=== PATIENT | male | born 1930 | race Caucasian/White ===

== ENCOUNTER → 2019-01-04 | Outpatient (CLI) | payer OTHER ==
[~2019-01-04] MED LIST: IOPAMIDOL (ISOVUE-M 200) 20 ML VIAL ONE; LIDOCAINE 1% 300 MG/30 ML SDV ONE
[2019-01-04 09:46] LABS: INR 1.08 (0.83-1.16); PROTIME(PATIENT) 13.6 SEC (12.0-15.0)
== END ==
LOC: FIMAGING 08:55
PROVIDERS: ATTEND Neurological Surgery
DX: M48.07 Spinal stenosis, lumbosacral region (principal); M54.5 Low back pain; Z95.0 Presence of cardiac pacemaker
CPT/HCPCS: 72132; 72265; Q9966

== ENCOUNTER 2019-01-09 15:45 | Inpatient (IN) | payer OTHER ==
--- NOTE | 2019-01-09 16:29 | EDPHY ---
H & P Stated Complaint: Increasing low back pain, numbness to left leg and urinary incontinence. 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 He has a L3- 4 decompression surgery planned with Dr. Morrison at [facility] on Monday. He states that over the last 3 days his weakness is grown worsened he can no longer ambulate. He has become more incontinent and is wishing to have the surgery done earlier. He also complains of numbness and his perineum. He called their office and they recommended he come to the ER. He has not had a fever. No new trauma. No right leg symptoms. No arm or neck symptoms. He got cleared by the cardiology team yesterday. He is not currently on steroids. Severity: Severe Modifying factors: Gradually worsening REVIEW OF SYSTEMS: Constitutional: denies: chills, fever, recent illness, recent injury EENTM: denies: blurred vision, double vision, nose congestion Respiratory: denies: cough, shortness of breath Cardiac: denies: chest pain, irregular heart rate, lightheadedness, palpitations Gastrointestinal/Abdominal: denies: abdominal pain, diarrhea, nausea, vomiting, blood streaked stools Genitourinary: denies: dysuria, frequency, hematuria, pain Musculoskeletal: See HPI Skin: denies: lesions, rash, jaundice, bruising Neurological: See HPI Hematologic/Lymphatic: denies: blood clots, easy bleeding, easy bruising Immunologic/allergic: denies: HIV/AIDS, transplant 10 systems reviewed and negative except as noted EXAM: GENERAL: Well-appearing, well-nourished and in no acute distress. HEAD: Atraumatic, normocephalic. EYES: Pupils equal round and reactive to light, extraocular movements intact, sclera anicteric, conjunctiva are normal. ENT: TMs normal, nares patent, oropharynx clear without exudates. Moist mucous membranes. NECK: Normal range of motion, supple without lymphadenopathy or JVD. LUNGS: Breath sounds clear to auscultation bilaterally and equal. No wheezes rales or rhonchi. HEART: Regular rate and rhythm without murmurs, rubs or gallops. ABDOMEN: Soft, nontender, normoactive bowel sounds. No guarding, no rebound. No masses appreciated. BACK: No CVA tenderness, no spinal tenderness, step-offs or deformities EXTREMITIES: Left leg pain and numbness. Strong plantar flexion but weak dorsiflexion. Pain with weight-bearing NEUROLOGICAL: Cranial nerves II through XII grossly intact. Normal speech, unable to weightbear left leg. See above PSYCH: Normal mood, normal affect. SKIN: Warm, dry, normal turgor, no visible rashes or lesions. Source: Patient Exam Limitations: No limitations - Personal History Current Tetanus Diphtheria and Acellular Pertussis (TDAP): Unsure - Medical/Surgical History Hx Asthma: No Hx Chronic Respiratory Disease: Yes Hx Diabetes: No Hx Cardiac Disease: Yes Hx Renal Disease: No Hx Cirrhosis: No Hx Alcoholism: No Hx HIV/AIDS: No Hx Splenectomy or Spleen Trauma: No Other PMH: Sleep apnea. Pacer. - Family History Significant Family History: No pertinent family hx - Social History Smoking Status: Former smoker Alcohol Use: None Constitutional: Initial Vital Signs Temperature (C) 36.9 C 01/09/19 15:55 Heart Rate 78 01/09/19 15:55 Respiratory Rate 18 01/09/19 15:55 Blood Pressure 135/77 H 01/09/19 15:55 O2 Sat (%) 91 L 01/09/19 15:55 O2 Delivery Mode Room Air Allergies/Adverse Reactions: No Known Allergies Allergy (Unverified 11/30/15 13:29) Home Medications: Medication Instructions Recorded Aspirin [Aspirin 81mg (*)] 81 mg PO DAILY 11/30/15 Atorvastatin Calcium [Lipitor 10 10 mg PO DAILY 11/30/15 mg (*)] Cholecalciferol Vit D3 [Vitamin D3 2,000 units PO BID 11/30/15 2000 units] Melatonin [Melatonin 3 MG (*)] 3 mg PO HS PRN 11/30/15 Omeprazole [Prilosec] 40 mg PO DAILY 11/30/15 diphenhydrAMINE [Benadryl 25 MG 50 mg PO HS PRN 11/30/15 (*)] Glucosamine Sulfate [Glucosamine 3,000 mg PO DAILY 01/03/19 Sulfate 500 MG (*)] Diclofenac Sodium [Voltaren 75 MG 75 mg PO BID PRN 01/09/19 (*)] Magnesium Oxide [Magnesium Oxide 400 mg PO HS 01/09/19 400 mg (*)] Medical Decision Making ED Course/Re-evaluation: I discussed the patient with Dr. Elizalde who will speak with Dr. Morrison and call back. 4:[address] Elizalde called back and they recommended admission to the hospital and start steroids and will plan surgery tomorrow. They also wondered if the patient had been cleared by the cardiology team. This did happen yesterday. Will admit to the medical service. 5:00 p.m. Discussed the case with Dr. Lucas who will admit. Differential Diagnosis: Partial list of the Differential diagnosis considered include but were not limited to; cauda equina, radiculopathy and although unlikely based on the history and physical exam, I also considered abscess, hematoma, fracture. - Data Points Medications Given: Discontinued Medications Dexamethasone (Decadron Injection) 10 mg IVP EDNOW ONE Stop: 01/09/19 16:54 Last Admin: 01/09/19 17:11 Dose: 10 mg Departure - Departure Disposition: Home, Routine, Self-Care Clinical Impression: Lumbar radiculopathy Condition: Fair
[2019-01-09] MEDS ORDERED: DEXAMETHASONE 4 MG TAB PO ONE (16:44)
[2019-01-09] MEDS ORDERED: DEXAMETHASONE 10 MG/ML VIAL ONE (16:52)
[2019-01-09] MEDS ORDERED: DEXAMETHASONE 10 MG/ML VIAL IVP ONE (16:53)
[2019-01-09] MEDS ORDERED: ONDANSETRON DISINTEGRATING 4 MG TAB PO PRN (17:28)
[2019-01-09] MEDS ORDERED: ONDANSETRON 4 MG/2 ML VIAL IVP PRN (17:28)
[2019-01-09 17:41] LABS: PLATELET COUNT 196 10^3/uL (150-400)
--- NOTE | 2019-01-09 19:13 | PDGENHP ---
<Nelida Martinez - Last Filed: 01/09/19 19:39> History and Physical - Chief Complaint Increasing lower back pain - History of Present Illness This is an 88-year-old male with history of increasing lower back pain who had a lumbar myelogram 3 days ago. It was found he had a spinal stenosis at L4-L5 and moderate to severe stenosis at L1 through 4, he was scheduled for a L3-L4 decompression surgery with Dr. Mendiola at [facility] on Monday. However the last few days his lower back pain has worsened to the point where he is no longer able to ambulate, he has urinary incontinence, and endorses saddle paraesthesia. He also reports an increase in stubbing his left toe due to weak dorsiflexion. He call the Neurosurgery office to explain to them his symptoms and requesting surgery surgery be performed at a sooner time which will be happening tomorrow. Neurosurgery office instructed him to come to the emergency room and be admitted for preparation of this surgery. He does have an extensive cardiac history and was evaluated by Dr. Lani Goel yesterday with clearance for surgery tomorrow. He denies chest pain, palpitations, nausea, shortness of breath, irregular bowel movements. Denies fevers or chills. He is being admitted for treatment and monitoring. History Information - Allergies/Home Medication List Allergies/Adverse Reactions: No Known Allergies Allergy (Unverified 11/30/15 13:29) Home Medications: Aspirin [Aspirin 81mg (*)] 81 mg PO DAILY 11/30/15 [Last Taken 01/09/19] Atorvastatin Calcium [Lipitor 10 mg (*)] 10 mg PO DAILY 11/30/15 [Last Taken 07/20] Cholecalciferol Vit D3 [Vitamin D3 2000 units] 2,000 units PO BID 11/30/15 [ Last Taken 01/09/19] Melatonin [Melatonin 3 MG (*)] 3 mg PO HS PRN 11/30/15 [Last Taken 11/29/15] Omeprazole [Prilosec] 40 mg PO DAILY 11/30/15 [Last Taken 01/09/19] diphenhydrAMINE [Benadryl 25 MG (*)] 50 mg PO HS PRN 11/30/15 [Last Taken ] Glucosamine Sulfate [Glucosamine Sulfate 500 MG (*)] 3,000 mg PO DAILY 01/03/19 [Last Taken Unknown] Diclofenac Sodium [Voltaren 75 MG (*)] 75 mg PO BID PRN 01/09/19 [Last Taken Unknown] Magnesium Oxide [Magnesium Oxide 400 mg (*)] 400 mg PO HS 01/09/19 [Last Taken Unknown] I have personally reviewed and updated: family history, medical history, social history, surgical history Past Medical History: Sleep apnea wearing 3-3.5 L of oxygen with his CPAP at nighttime, basal and squamous cell carcinoma, complete heart block, left bundle branch block, Hernandez's esophagus, pacemaker, hearing loss, osteoarthritis, high cholesterol - Surgical History Additional surgical history: Cataract surgery, cervical spinal fusion, hernia, right hip replacement, melanoma, prostatectomy - Family History Positive for: CAD - Social History Smoking Status: Former smoker Alcohol Use: Rarely Drug Use: None Additional social history: to [place]. Lives in [place]. Uses a cane to ambulate. Review of Systems Review of Systems: ROS: 10pt was reviewed & negative except for what was stated in HPI & below Physical Exam Physical Exam: Lab data and imaging were reviewed. White blood cells: 7.66 RBC: 4.49 hemoglobin: 14.6 Hematocrit: 42.3 Platelet: 196 Sodium: 136 Potassium: 4.1 Chloride: 105 Carbon dioxide: 23 BUN/Cr: 21/1.0 INR on 01/04/2019 :1.08 Temp Pulse Resp BP Pulse Ox 36.7 C 78 17 131/73 H 93 01/09/19 17:42 01/09/19 17:42 01/09/19 17:42 01/09/19 17:42 01/09/19 17:42 Constitutional: appears nourished, uncomfortable Eyes: PERRL, anicteric sclera, EOMI Ears, Nose, Mouth, Throat: moist mucous membranes, ears appear normal, no oral mucosal ulcers, hard of hearing Cardiovascular: regular rate and rhythym, no murmur, rub, or gallop, No edema Peripheral Pulses: 2+: dorsalis-pedis (R) (+DF/PF), dorsalis-pedis (L) (+PF, weak DF) Respiratory: no respiratory distress, no rales or rhonchi, clear to auscultation Gastrointestinal: normoactive bowel sounds, soft, non-tender abdomen, no palpable masses Genitourinary: other (see hpi) Skin: warm, normal color, no rashes or abrasions, no fluctuance, no induration, No mottled Musculoskeletal: pain with ROM (D/t lumbar back) Neurologic: AAOx3, sensation intact bilaterally, weakness, numbness, CN II-XII Intact Psychiatric: interacting appropriately, not anxious, not encephalopathic, thought process linear Lymph, Heme, Immunologic: no cervical LAD, no supraclavicular LAD Lab Data & Imaging Review 01/09/19 17:10 01/09/19 17:10 WBC 7.66 10^3/uL (3.80-9.50) 01/09/19 17:10 RBC 4.49 10^6/uL (4.40-6.38) 01/09/19 17:10 Hgb 14.6 g/dL (13.7-17.5) 01/09/19 17:10 Hct 42.3 % (40.0-51.0) 01/09/19 17:10 MCV 94.2 fL (81.5-99.8) 01/09/19 17:10 MCH 32.5 pg (27.9-34.1) 01/09/19 17:10 MCHC 34.5 g/dL (32.4-36.7) 01/09/19 17:10 RDW 14.0 % (11.5-15.2) 01/09/19 17:10 Plt Count 196 10^3/uL (150-400) 01/09/19 17:10 MPV 10.6 fL (8.7-11.7) 01/09/19 17:10 Neut % (Auto) 73.0 % (39.3-74.2) 01/09/19 17:10 Lymph % (Auto) 13.4 % (15.0-45.0) L 01/09/19 17:10 [place] % (Auto) 9.9 % (4.5-13.0) 01/09/19 17:10 Eos % (Auto) 2.5 % (0.6-7.6) 01/09/19 17:10 Baso % (Auto) 0.8 % (0.3-1.7) 01/09/19 17:10 Nucleat RBC Rel Count 0.0 % (0.0-0.2) 01/09/19 17:10 Absolute Neuts (auto) 5.59 10^3/uL (1.70-6.50) 01/09/19 17:10 Absolute Lymphs (auto) 1.03 10^3/uL (1.00-3.00) 01/09/19 17:10 Absolute Monos (auto) 0.76 10^3/uL (0.30-0.80) 01/09/19 17:10 Absolute Eos (auto) 0.19 10^3/uL (0.03-0.40) 01/09/19 17:10 Absolute Basos (auto) 0.06 10^3/uL (0.02-0.10) 01/09/19 17:10 Absolute Nucleated RBC 0.00 10^3/uL (0-0.01) 01/09/19 17:10 Immature Gran % 0.4 % (0.0-1.1) 01/09/19 17:10 Immature Gran # 0.03 10^3/uL (0.00-0.10) 01/09/19 17:10 Sodium 136 mEq/L (135-145) 01/09/19 17:10 Potassium 4.1 mEq/L (3.5-5.2) 01/09/19 17:10 Chloride 105 mEq/L (97-110) 01/09/19 17:10 Carbon Dioxide 23 mEq/l (22-31) 01/09/19 17:10 Anion Gap 8 mEq/L (6-14) 01/09/19 17:10 BUN 21 mg/dL (7-23) 01/09/19 17:10 Creatinine 1.0 mg/dL (0.7-1.3) 01/09/19 17:10 Estimated GFR > 60 01/09/19 17:10 Glucose 137 mg/dL (70-100) H 01/09/19 17:10 Calcium 9.2 mg/dL (8.5-10.4) 01/09/19 17:10 Total Bilirubin 0.8 mg/dL (0.1-1.4) 01/09/19 17:10 AST 53 IU/L (17-59) 01/09/19 17:10 ALT 55 IU/L (21-72) 01/09/19 17:10 Alkaline Phosphatase 93 IU/L (38-126) 01/09/19 17:10 Total Protein 6.0 g/dL (6.3-8.2) L 01/09/19 17:10 Albumin 3.8 g/dL (3.5-5.0) 01/09/19 17:10 Assessment & Plan Plan: This is an 88-year-old gentleman who is presenting with worsening lower back pain associated with left lower extremity numbness, weak dorsiflexion, and urinary incontinence. He also has saddle paresthesia. He was scheduled for decompression L3-L4 next Monday with Dr. Mendiola however due to his progressively worsening condition, he called the office and requested surgery sooner which will happen tomorrow. His vital signs are: Blood pressure 131/73, heart rate 78 , respiration 17, 93% on RA, temperature is 36.7 degrees C. #Pre-operative cardiac risk: He was seen by Dr. Lani Goel yesterday for preop cardiovascular examination and cardiac risks and clearance. He has complete heart block and is pacer dependent. He has a [employer] device. It is recommended he will need a magnet application through surgery. EKG performed yesterday showed likely A-sensed and V paced. He has no cardiovascular complaints. He has been cleared by cards for planned surgery without further cardiac testing. #Lumbar surgery -neurosurgery has been consulted and is well aware of the patient and planned surgery for tomorrow -NPO at midnight tonight -Pain Management p.o. P.r.n. -PT and OT to evaluate and treat -he received dexamethasone in the emergency room; no other steroids have been given. Holding his aspirin and meloxicam for tonight. # sleep apnea -he utilizes oxygen with the CPAP, usually set to 3-3.5 L of oxygen # complete heart block/pacer -as stated before, patient has no cardiovascular complaints at this time. He may continue use of atorvastatin. Holding aspirin tonight. -continuous tele monitoring tonight to ensure arrhythmias # GERD: He may continue omeprazole. Diet: Regular, NPO at midnight tonight VTE ppx: SCDs Code: Full Dispo: Admit to inpatient <Ruiz Giang - Last Filed: 01/09/19 19:46> History and Physical - History of Present Illness Review of Systems Review of Systems: Physical Exam Physical Exam: Temp Pulse Resp BP Pulse Ox 36.8 C 78 16 138/76 H 89 L 01/09/19 19:25 01/09/19 19:25 01/09/19 19:25 01/09/19 19:25 01/09/19 19:25 Lab Data & Imaging Review 01/09/19 17:10 01/09/19 17:10 WBC 7.66 10^3/uL (3.80-9.50) 01/09/19 17:10 RBC 4.49 10^6/uL (4.40-6.38) 01/09/19 17:10 Hgb 14.6 g/dL (13.7-17.5) 01/09/19 17:10 Hct 42.3 % (40.0-51.0) 01/09/19 17:10 MCV 94.2 fL (81.5-99.8) 01/09/19 17:10 MCH 32.5 pg (27.9-34.1) 01/09/19 17:10 MCHC 34.5 g/dL (32.4-36.7) 01/09/19 17:10 RDW 14.0 % (11.5-15.2) 01/09/19 17:10 Plt Count 196 10^3/uL (150-400) 01/09/19 17:10 MPV 10.6 fL (8.7-11.7) 01/09/19 17:10 Neut % (Auto) 73.0 % (39.3-74.2) 01/09/19 17:10 Lymph % (Auto) 13.4 % (15.0-45.0) L 01/09/19 17:10 [place] % (Auto) 9.9 % (4.5-13.0) 01/09/19 17:10 Eos % (Auto) 2.5 % (0.6-7.6) 01/09/19 17:10 Baso % (Auto) 0.8 % (0.3-1.7) 01/09/19 17:10 Nucleat RBC Rel Count 0.0 % (0.0-0.2) 01/09/19 17:10 Absolute Neuts (auto) 5.59 10^3/uL (1.70-6.50) 01/09/19 17:10 Absolute Lymphs (auto) 1.03 10^3/uL (1.00-3.00) 01/09/19 17:10 Absolute Monos (auto) 0.76 10^3/uL (0.30-0.80) 01/09/19 17:10 Absolute Eos (auto) 0.19 10^3/uL (0.03-0.40) 01/09/19 17:10 Absolute Basos (auto) 0.06 10^3/uL (0.02-0.10) 01/09/19 17:10 Absolute Nucleated RBC 0.00 10^3/uL (0-0.01) 01/09/19 17:10 Immature Gran % 0.4 % (0.0-1.1) 01/09/19 17:10 Immature Gran # 0.03 10^3/uL (0.00-0.10) 01/09/19 17:10 Sodium 136 mEq/L (135-145) 01/09/19 17:10 Potassium 4.1 mEq/L (3.5-5.2) 01/09/19 17:10 Chloride 105 mEq/L (97-110) 01/09/19 17:10 Carbon Dioxide 23 mEq/l (22-31) 01/09/19 17:10 Anion Gap 8 mEq/L (6-14) 01/09/19 17:10 BUN 21 mg/dL (7-23) 01/09/19 17:10 Creatinine 1.0 mg/dL (0.7-1.3) 01/09/19 17:10 Estimated GFR > 60 01/09/19 17:10 Glucose 137 mg/dL (70-100) H 01/09/19 17:10 Calcium 9.2 mg/dL (8.5-10.4) 01/09/19 17:10 Total Bilirubin 0.8 mg/dL (0.1-1.4) 01/09/19 17:10 AST 53 IU/L (17-59) 01/09/19 17:10 ALT 55 IU/L (21-72) 01/09/19 17:10 Alkaline Phosphatase 93 IU/L (38-126) 01/09/19 17:10 Total Protein 6.0 g/dL (6.3-8.2) L 01/09/19 17:10 Albumin 3.8 g/dL (3.5-5.0) 01/09/19 17:10 Assessment & Plan Assessment: Lumbar radiculopathy (Acute) Plan: Patient seen and evaluated independently and care plan reviewed with STEWART Martinez. Agree with her assessment and plan as outlined above , please see separate documentation for further details.
--- NOTE | 2019-01-09 19:55 | HOSPPROG ---
Hospitalist Progress Note Assessment/Plan: 88 yo M w/hx of complete heart block s/p PPM as well as lumbar stenosis with plan for surgery on Monday pw increasing radicular pain # lumbar stenosis and radiculopathy: with sxs worsening at home to the point where he is no longer able to walk and with perineal burning pain that is worsening, neurosurgery aware and recommending admission, pain mgmt and will change plan to do surgery sooner--likely in the am though this has yet to be confirmed. Will admit for pain control, pt/ot, NPO after midnight for now until surgical plan clarified. Lumbar spine CT personally reviewed with severe stenosis noted L4/L5. # 3rd degree heart block: s/p PPM, patient evaluated by cardiology prior to admission for surgical clearance, they do not recommend further testing or treatment prior to surgery # NA: on CPAP at home which has been ordered to continue here # HLD: continue statin # GERD: continue ppi # hx of melanoma, prostate cancer-not active issues # IP status, will require > 48 hours stay for surgical intervention and recovery Patient new to my care. Old records reviewed and summarized as above. Care plan reviewed with ER doctor and STEWART Martinez as above. Please see separate H&P by STEWART Martinez for further details Objective: Vital Signs Temp Pulse Resp BP Pulse Ox 36.8 C 78 16 138/76 H 89 L 01/09/19 19:25 01/09/19 19:25 01/09/19 19:25 01/09/19 19:25 01/09/19 19:25 Laboratory Results 01/09/19 17:10 01/09/19 17:10 ICD10 Worksheet Patient Problems: Problems Problem Status Onset Heart block AV second degree Acute Lumbar radiculopathy Acute
[2019-01-09] MEDS: CHOLECALCIFEROL VIT D3 1,000 UNITS TAB PO SCH (20:45)
[2019-01-09] MEDS: MELATONIN 3 MG TAB PO PRN (20:45)
[2019-01-10 05:46] LABS: PLATELET COUNT 183 10^3/uL (150-400)
--- NOTE | 2019-01-10 07:32 | GCON ---
[f rep st] CONSULTATION HOSPITAL COURSE/HISTORY/MAJOR MEDICAL FINDINGS: The patient is an 88-year-old gentleman with a histo ry of low back pain and left leg pain and weakness that has been increasing. He was scheduled to und ergo surgery, L3 to L5 laminectomy, with Dr. Morrison on Monday pending medical clearance. However, he developed worsening pain and numbness. He does have baseline urinary incontinence and saddle paresth esias. He denies any new right leg pain, numbness, tingling, or weakness. REVIEW OF SYSTEMS: Negative other than what is stated in the HPI. Please see pertinent negatives, p ertinent positives. PAST MEDICAL HISTORY: Significant for sleep apnea, using CPAP, basal and squamous cell carcinomas, c omplete heart block, left bundle branch block, Hernandez esophagus, having a pacemaker, hearing loss, o steoarthritis, and high cholesterol. PAST SURGICAL HISTORY: Significant for cataract surgery, cervical spinal fusion, hernia, right hip r eplacement, melanoma, and prostatectomy. FAMILY HISTORY: Significant for coronary artery disease. SOCIAL HISTORY: He is a former smoker. He does not use any alcohol or use illicit drugs. He is cur rently , lives in [place]. HOME MEDICATIONS: Include aspirin 81 mg 1 p.o. daily, last taken on January 09. Lipitor 10 mg, vitami n D3, melatonin, Prilosec, Benadryl, glucosamine sulfate, diclofenac, and magnesium oxide. ALLERGIES: No known drug allergies. PHYSICAL EXAM: VITALS: 123/68. Heart rate is 75. He is 96% on 3 L nasal cannula. Temp is 36.7. GENERAL: The patient is in no acute distress. He is alert and oriented x3. He answers all question s appropriately. His affect is appropriate to given situation. NEUROLOGIC: Cranial nerves 2-12 are grossly intact. EOMI and PERRLA. The patient in his right lower extremity is diffusely a 5- out of 5 in his iliopsoas, hamstrings, quadriceps, plantar flexion, dorsiflexion, EHL. The patient's left lower extremity, he is a 4- to 3+ in his dorsiflexion and his EHL. DIAGNOSTIC REVIEW: Patient underwent a CT myelogram which was reviewed by Dr. Morrison and his PA, John brunson, in the office, which demonstrated severe central canal stenosis at L4-5 and at L3-4. ASSESSMENT AND PLAN: The patient is an 88-year-old gentleman with a significant cardiac history and medical history including sleep apnea, pacemaker, and history of history of heart block, who has sam re central stenosis with known incontinence, saddle anesthesia, and worsening left leg weakness and n umbness. He was admitted to the hospital. At this point in time, Medicine is currently admitting michael m, working him up for clearance. Will defer to them about whether specific cardiac clearance is need ed for surgery. Given his worsening symptoms, it is reasonable to do surgery on this admission. We will go ahead and try to post him for surgery tomorrow if he can be cleared from a medical cardiac [facility]. He will be posted for an L3 to L5 laminectomy and decompression. Dr. Dusty Castle w ill be seeing the patient today and staffing this patient, but he will be going to the operating room with Dr. Vinny Morrison. /[id number]/MODL
--- NOTE | 2019-01-10 08:13 | HOSPPROG ---
Hospitalist Progress Note Assessment/Plan: 88 yo M w/hx of complete heart block s/p PPM as well as lumbar stenosis with plan for surgery on Monday pw increasing radicular pain. First encounter, chart reviewed. # lumbar stenosis and radiculopathy -says he has no pain unless he moves -plan is for a L3-L5 laminectomy w decompression -CT shows severe stenosis at L4/5 # 3rd degree heart block -s/p PPM -saw Dr Goel by cardiology prior to admission for surgical clearance, they do not recommend further testing or treatment prior to surgery # NA -on CPAP # HLD -statin # GERD -ppi # hx of melanoma, prostate cancer #plan: hopefully to OR today Subjective: Don is having no pain down left leg at rest, has some numbness along the outer edge of his upper leg and calf area. Objective: Vital Signs Temp Pulse Resp BP Pulse Ox 36.7 C 75 16 123/69 H 96 01/10/19 04:00 01/10/19 04:00 01/10/19 04:00 01/10/19 04:00 01/10/19 04:00 Laboratory Results 01/10/19 04:24 01/10/19 04:24 - Physical Exam Constitutional: no apparent distress Eyes: PERRL Ears, Nose, Mouth, Throat: hard of hearing Cardiovascular: regular rate and rhythym Respiratory: no respiratory distress, reduced air movement (bases) Gastrointestinal: normoactive bowel sounds Skin: warm Neurologic: AAOx3 Psychiatric: interacting appropriately ICD10 Worksheet Patient Problems: Problems Problem Status Onset Lumbar radiculopathy Acute Heart block AV second degree Acute
[2019-01-10] MEDS ORDERED: ATORVASTATIN CALCIUM 10 MG TAB PO SCH (09:00)
[2019-01-10] MEDS: PANTOPRAZOLE SODIUM 40 MG TAB PO SCH (09:38)
[2019-01-10] MEDS: CHOLECALCIFEROL VIT D3 1,000 UNITS TAB PO SCH ×2 (09:38→22:17)
[2019-01-10] MEDS: ACETAMINOPHEN 325 MG TAB PO PRN (09:40)
--- NOTE | 2019-01-10 15:12 | PDMN ---
Medical Necessity Medical necessity: Pt meets IP criteria per & ZULEIMA M-63; est los >2 mn for eval/tx of worsening back pain with LE numbness, weak dorsiflexion, inability to ambulate, urinary incontinence & saddle paraesthesia; admit for Neurosurgery consult w/lumbar surgery; comorbid advanced age, extensive cardiac hx; per H&P & order 01/09/19
[2019-01-10] MEDS: METHOCARBAMOL 750 MG TAB PO PRN (22:24)
[2019-01-11 04:52] LABS: PLATELET COUNT 181 10^3/uL (150-400)
[2019-01-11] MEDS ORDERED: ceFAZolin 2 GM/DEXTROSE 100 ML IV ONE (06:17)
[2019-01-11] MEDS ORDERED: ACETAMINOPHEN 500 MG TAB PO ONE (06:18)
[2019-01-11] MEDS ORDERED: GABAPENTIN 300 MG CAP PO ONE (06:19)
--- NOTE | 2019-01-11 06:20 | PDHPUP ---
History & Physical Update H&P update statement: This history and physical update is based on an assessment of the patient which was completed after admission or registration (within 24 hours), but prior to the surgery/procedure. H&P update: H&P reviewed & patient examined, no change in patient's condition since H&P completed
[2019-01-11] MEDS ORDERED: LR 1,000 ML IV ONE (06:30)
[2019-01-11] MEDS ORDERED: CHLORHEXIDINE GLUC HIBICLENS 118 ML BTL TP ONE (06:52)
[2019-01-11] MEDS ORDERED: THROMBIN (BOVINE) 5,000 UNIT VIAL TP ONE (06:52)
[2019-01-11] MEDS ORDERED: BUPIVACAINE/EPI 0.25% 30 ML SDV ONE (06:52)
[2019-01-11] MEDS ORDERED: BACITRACIN 50,000 UNITS/10 ML SYR IRR ONE (06:53)
--- NOTE | 2019-01-11 06:54 | PDANEPAE ---
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 Lavon notes not available pre-op. No other data available - Pulmonary History Hx Oxygen in Use at Home: Yes O2 in Use at Home (L/minute): 4 Hx Sleep Apnea: Yes Sleep Apnea Screening Result - Last Documented: Positive - Endocrine History Hx Diabetes: No - Chronic Pain History Chronic Pain: No ANE Review of Systems Review of Systems: - Pacemaker Date Pacemaker Last Checked: 01/08/19 ANE Patient History - Allergies Allergies/Adverse Reactions: No Known Allergies Allergy (Unverified 11/30/15 13:29) - Home Medications Home Medications: Aspirin [Aspirin 81mg (*)] 81 mg PO DAILY 11/30/15 [Last Taken 01/09/19] Atorvastatin Calcium [Lipitor 10 mg (*)] 10 mg PO DAILY 11/30/15 [Last Taken 07/20] Cholecalciferol Vit D3 [Vitamin D3 2000 units] 2,000 units PO BID 11/30/15 [ Last Taken 01/09/19] Melatonin [Melatonin 3 MG (*)] 3 mg PO HS PRN 11/30/15 [Last Taken 11/29/15] Omeprazole [Prilosec] 40 mg PO DAILY 11/30/15 [Last Taken 01/09/19] diphenhydrAMINE [Benadryl 25 MG (*)] 50 mg PO HS PRN 11/30/15 [Last Taken ] Glucosamine Sulfate [Glucosamine Sulfate 500 MG (*)] 3,000 mg PO DAILY 01/03/19 [Last Taken Unknown] Diclofenac Sodium [Voltaren 75 MG (*)] 75 mg PO BID PRN 01/09/19 [Last Taken Unknown] Magnesium Oxide [Magnesium Oxide 400 mg (*)] 400 mg PO HS 01/09/19 [Last Taken Unknown] - NPO status NPO Since - Liquids (Date): 01/11/19 NPO Since - Liquids (Time): 00:01 NPO Since - Solids (Date): 01/11/19 NPO Since - Solids (Time): 00:01 - Smoking Hx Smoking Status: Former smoker - Alcohol Use Alcohol Use: Rarely ANE Labs/Vital Signs - Labs Result Diagrams: 01/11/19 04:20 01/11/19 04:20 - Vital Signs Blood Pressure: 146/88 Heart Rate: 75 Respiratory Rate: 16 O2 Sat (%): 92 Height: 170.18 cm Weight: 86.183 kg ANE Physical Exam - Airway Neck exam: decreased ROM Mallampati Score: Class 3 Mouth exam: normal dental/mouth exam - Pulmonary Pulmonary: no respiratory distress, no rales or rhonchi - Cardiovascular Cardiovascular: regular rate and rhythym, no murmur, rub, or gallop - ASA Status ASA Status: III ANE Anesthesia Plan Anesthesia Plan: general endotracheal anesthesia (patient "had clearance." spoke with gayle. applied magnet to pacemaker with appropriate response. because cardiology recomends no further pre-op testing we will proceed today in a conservative manner assuming poor cardiac function) Total IV Anesthesia: Yes
--- NOTE | 2019-01-11 07:07 | PDCONSULT ---
Benefits Counselor Note: NEUROSURGERY I saw Don this morning and again spoke to him about the surgery. We had surgery scheduled for Monday, but his symptoms have worsened at home which is why he came for admission. His weakness has not worsened, but his numbness has continued to get worse. He has had some urinary incontinence as well, but he thinks that this has been because it has been difficult for him to get to the bathroom. We discussed the surgery at length and the risks of nerve injury, CSF leak, infection, and post-laminectomy syndrome. I answered all of his questions. He is ready to proceed. Prince
[2019-01-11] MEDS ORDERED: LIDOCAINE 2% 100 MG/5 ML SYR ONE (07:20)
[2019-01-11] MEDS ORDERED: PROPOFOL/EMULSION 500 MG/50 ML BOTTLE IV ONE ×2 (07:20→08:16)
[2019-01-11] MEDS ORDERED: fentaNYL 100 MCG/2 ML INJ ONE ×2 (07:20→10:16)
[2019-01-11] MEDS ORDERED: REMIFENTANIL HCL 1 MG VIAL ONE (07:20)
[2019-01-11] MEDS ORDERED: PROPOFOL 200 MG/20 ML VIAL ONE (07:20)
[2019-01-11] MEDS ORDERED: ROCURONIUM 50 MG/5 ML VIAL ONE (07:20)
[2019-01-11] MEDS ORDERED: SUGAMMADEX SODIUM 200 MG/2 ML VIAL IVP ONE (09:24)
[2019-01-11] MEDS ORDERED: ONDANSETRON 4 MG/2 ML VIAL ONE (09:24)
[2019-01-11] MEDS ORDERED: KETOROLAC 30 MG/1 ML SDV ONE (09:24)
[2019-01-11] MEDS ORDERED: DEXAMETHASONE 4 MG/ML VIAL ONE (09:24)
[2019-01-11] MEDS ORDERED: fentaNYL 100 MCG/2 ML INJ IVP PRN (09:56)
[2019-01-11] MEDS ORDERED: LR 500 ML IV PRN (09:56)
[2019-01-11] MEDS ORDERED: HYDROmorphONE/DILAUDID 1 MG/ML INJ IVP PRN (09:56)
[2019-01-11] MEDS ORDERED: NALOXONE HCL 0.4 MG/ML INJ IVP PRN (09:56)
[2019-01-11] MEDS ORDERED: oxyCODONE IR 5 MG TAB PO PRN (09:56)
[2019-01-11] MEDS ORDERED: MEPERIDINE 25 MG/0.5 ML AMP IVP PRN (09:56)
--- NOTE | 2019-01-11 09:58 | POSTANESTH ---
Post Anesthetic Evaluation Cardiovascular Status: Normal, Stable Respiratory Status: Normal, Stable Level of Consciousness/Mental Status: Can Participate in Eval, Mildly Sleepy, Arousable Pain Control: Adequate, Prn Tx Ordered Nausea/Vomiting Control: Adequate, Prn Tx Ordered Complications Possibly Related to Anesthesia: None Noted
--- NOTE | 2019-01-11 10:02 | POSTOPPROG ---
Post Op Note Date of Operation: 01/11/19 Surgeon: Vinny Morrison Color Mixer: none Anesthesiologist: Livan Anesthesia: GET(General Endotracheal) Pre-op Diagnosis: severe lumbar stenosis with neurogenic claudication Post-op Diagnosis: same Indication: same Procedure: L3-5 laminectomy Findings: severe lumbar stenosis Inf/Abcess present in the surg proc area at time of surgery?: No EBL: 50-100 Complications: none Bowel Protocol: No Clean Closure Performed: Yes Drains: Murray Delacruz
--- NOTE | 2019-01-11 10:04 | PDCONSULT ---
Account Support Manager Note: NEUROSURGERY resting in PACU AAOx3, speech clear strength is full, ? very mild left DF weakness sensation intact to light touch ROSARIO in place, dressings c/d/i POD#0 s/p L3-5 laminectomy - doing well - pain control - PT/OT - possible d/c tomorrow if doing well Prince
--- NOTE | 2019-01-11 10:20 | GOP ---
[f rep st] OPERATIVE REPORT DATE OF OPERATION: 01/11/2019 SURGEON: Vinny Morrison MD NEUROSURGEON: Vinny Morrison MD. AUTOMOBILE UPHOLSTERER APPRENTICE: None. ANESTHESIA: General endotracheal. PREOPERATIVE DIAGNOSIS: Severe lumbar stenosis with saddle anesthesia and some urinary retention. POSTOPERATIVE DIAGNOSIS: Severe lumbar stenosis with saddle anesthesia and some urinary retention. PROCEDURE PERFORMED: 1. Complete laminectomies at L3, L4, L5 with bilateral medial facetectomies and decompression of the cauda equina. 2. Use of the operative microscope. 3. Intraoperative fluoroscopy. 4. Intraoperative neurophysiologic monitoring, including somatosensory-evoked potentials and EMG. FINDINGS: Successful lumbar decompression. SPECIMENS: There were no specimens. ESTIMATED BLOOD LOSS: Blood loss was 75 mL. INDICATIONS: The patient is an 88-year-old man who presented with lumbar stenosis, which he was vinod ting conservatively. Over the past several weeks, his numbness in the perineal region has gotten wor se and he had a CT myelogram which revealed complete myelographic block at L4-5. We had him schedule d for surgery on Monday, but due to the worsening of his symptoms, he presented to the hospital and w e are proceeding with surgery early today. DESCRIPTION OF PROCEDURE: After informed consent was obtained from the patient, the patient was brou ght to the operating room and a formal time-out was performed, identifying the patient by name, medic al record number and date of . Preoperative antibiotics were given. The endotracheal tube was placed and general endotracheal anesthesia was smoothly induced. The patient was then turned to the prone position on the Desmond frame and all appropriate pressure points were padded and checked. All leads were placed for intraoperative neurophysiologic monitoring, including somatosensory-evoked pote ntials and EMG, and baseline potentials were obtained. A lateral radiograph then confirmed the level of the incision and a midline lumbar incision was marked. The lumbar region was prepped and draped in normal sterile fashion. 20 mL of 0.25% Marcaine with epinephrine was infiltrated in the skin for hemostasis and postoperative analgesia. The skin incision was then made using a 10 blade and the sub cutaneous tissues were dissected using monopolar electrocautery. The fascia was opened in the midlin e and the paraspinous muscles were taken down from the spinous process and lamina of L3, L4 and L5. The medial facet joints were identified and again a lateral radiograph was performed, confirming the levels of the exposure. This spinous processes were then removed using [place]ell rongeurs and the oper ative microscope was brought into the field. We began with drilling troughs laterally over the later al recess and then progressing medially. A midline decompression was performed removing the yellow l igament and carefully exposing the dura. We then able to course out laterally into the lateral reces s at the L5-S1 level and L3-4 level and moved in toward the area of the greater compression. At L4-5 , there was extreme facet degenerative disease and hypertrophy with markedly hypertrophied ligamentum flavum. This ligamentum flavum was disconnected laterally and then carefully dissected from the dur a, widely decompressing the dura at this level where it was maximally compressed. We then continued in the lateral recess, removing any ligamentum flavum from L3 down to L5-S1. Once the dura was widel y decompressed, the wound was copiously irrigated using bacitracin irrigation. Some powdered Gelfoam and Surgicel were placed in the lateral gutters for hemostasis. A final radiograph was performed co nfirming that we had decompressed from above L3-4 disk space down to the L5-S1 disk space. There was really no further bleeding and any oozing from the muscles was controlled using bipolar electrocaute ry. A 10-Canadian ROSARIO drain was placed in the subfascial space and the fascia was closed in the midline using interrupted 0 Vicryls, the deep dermis was closed using interrupted 2-0 Vicryls and the skin w as closed using Dermabond. Another 40 mL of 0.25% Marcaine with epinephrine was infiltrated into the skin and subcutaneous tissues for postoperative analgesia. The patient was then turned back into th e supine position where he was extubated and was transferred to the PACU in stable condition. There were no operative complications. I was scrubbed and present the entire procedure. All sponge and ne edle counts were correct at the end of the case. FLUIDS AND URINE OUTPUT: Per the Anesthesia record. DRAINS: A subfascial ROSARIO. /[id number]/MODL
[2019-01-11] MEDS: CHOLECALCIFEROL VIT D3 1,000 UNITS TAB PO SCH ×2 (10:49→22:05)
[2019-01-11] MEDS: PANTOPRAZOLE SODIUM 40 MG TAB PO SCH (10:49)
[2019-01-11] MEDS: KETOROLAC 15 MG/1 ML SDV IVP SCH ×2 (13:41→18:30)
--- NOTE | 2019-01-11 13:43 | HOSPPROG ---
Hospitalist Progress Note Assessment/Plan: 88 yo M w/hx of complete heart block s/p PPM as well as lumbar stenosis with plan for surgery on Monday pw increasing radicular pain. 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 PT and OT to see. Will see if he is stable enough to return home. Subjective: Don is feeling fine, sleepy. Objective: Vital Signs Temp Pulse Resp BP Pulse Ox 37.1 C 73 16 104/65 94 01/11/19 13:24 01/11/19 13:24 01/11/19 13:24 01/11/19 13:24 01/11/19 13:24 Laboratory Results 01/11/19 04:20 01/11/19 04:20 01/10/19 01/11/19 01/12/19 05:59 05:59 05:59 Intake Total 550 Output Total 85 Balance 465 - Physical Exam Constitutional: no apparent distress, appears nourished, not in pain Ears, Nose, Mouth, Throat: hard of hearing Cardiovascular: regular rate and rhythym Respiratory: no respiratory distress Gastrointestinal: normoactive bowel sounds Skin: warm Neurologic: AAOx3 Psychiatric: interacting appropriately ICD10 Worksheet Patient Problems: Problems Problem Status Onset Lumbar radiculopathy Acute Heart block AV second degree Acute
[2019-01-11] MEDS ORDERED: MAGNESIUM HYDROXIDE 30 ML UDCUP PO PRN (18:40)
[2019-01-11] MEDS ORDERED: LACTULOSE 20 GM/30 ML UDCUP PO PRN (18:40)
[2019-01-11] MEDS ORDERED: BISACODYL 10 MG SUPP PR PRN (18:40)
[2019-01-11] MEDS ORDERED: POLYETHYLENE GLYCOL 3350 17 GM PKT PO PRN (18:40)
[2019-01-11] MEDS: ATORVASTATIN CALCIUM 10 MG TAB PO SCH (22:05)
[2019-01-11] MEDS: SENNOSIDES/DOCUSATE SODIUM TAB PO SCH (22:05)
[2019-01-12] MEDS: KETOROLAC 15 MG/1 ML SDV IVP SCH ×4 (00:33→18:50)
[2019-01-12] MEDS: METHOCARBAMOL 750 MG TAB PO PRN ×2 (03:31→21:08)
[2019-01-12 04:42] LABS: PLATELET COUNT 170 10^3/uL (150-400)
--- NOTE | 2019-01-12 07:16 | NEUSURGPN ---
Date of Surgery: 01/11/19 Post Op Day: 1 Assessment/Plan: 88 yo male s/p L3-L5 laminectomy - leg symptoms improved this morning - continue ROSARIO drain (195 output in last 24 hours) - PT/OT - pain control - please contact neurosurgery with any changes in neuro status/exam Discussed with Dr. Morrison. Subjective: Feels leg pain is improved compared to prior to surgery. Objective: Awake. Alert. Facial expression symmetrical Speech fluent Strength 5/5 in RLE, LLE DF/EHL at 4+/5 - Physician Discussed Patient with Dr.: Morrison Neurosurgery Physical Exam - Vitals, I&O, Labs I and O 01/11/19 01/12/19 01/13/19 05:59 05:59 05:59 Intake Total 1450 Output Total 595 Balance 855 Weight 86.183 kg Intake: Oral (ml) 950 IV Intake (ml) 500 Output: Urine (ml) 350 Bedside Commode 250 Toilet 100 Estimated Blood Loss (ml) 50 ROSARIO Drain Output (ml) 195 Back Murray Delacruz 195 Other: Intake Quantity Yes Yes Sufficient Number of Voids Bedside Commode 1 Toilet 1 1 Vital Signs Temp Pulse Resp BP Pulse Ox 36.8 C 61 15 137/65 H 97 01/12/19 04:00 01/12/19 04:00 01/12/19 04:00 01/12/19 04:00 01/12/19 04:00 Laboratory Results 01/12/19 04:21 01/12/19 04:21 ICD10 Worksheet Patient Problems: Problems Problem Status Onset Lumbar radiculopathy Acute Heart block AV second degree Acute
--- NOTE | 2019-01-12 08:15 | HOSPPROG ---
Hospitalist Progress Note Assessment/Plan: 88 yo M w/hx of complete heart block s/p PPM as well as lumbar stenosis with plan for surgery on Monday pw increasing radicular pain. 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 He uses a walker at home. His daughter is here to help him and his at home. Subjective: Don is feeling well. His pain has completely lifted with surgery Objective: Vital Signs Temp Pulse Resp BP Pulse Ox 36.8 C 61 15 137/65 H 97 01/12/19 04:00 01/12/19 04:00 01/12/19 04:00 01/12/19 04:00 01/12/19 04:00 Laboratory Results 01/12/19 04:21 01/12/19 04:21 01/11/19 01/12/19 01/13/19 05:59 05:59 05:59 Intake Total 1450 Output Total 595 Balance 855 - Physical Exam Constitutional: appears nourished, not in pain Eyes: PERRL Respiratory: no respiratory distress Skin: warm Musculoskeletal: generalized weakness Neurologic: AAOx3 Psychiatric: interacting appropriately ICD10 Worksheet Patient Problems: Problems Problem Status Onset Lumbar radiculopathy Acute Heart block AV second degree Acute
[2019-01-12] MEDS: PANTOPRAZOLE SODIUM 40 MG TAB PO SCH (09:27)
[2019-01-12] MEDS: SENNOSIDES/DOCUSATE SODIUM TAB PO SCH ×2 (09:28→21:08)
[2019-01-12] MEDS: CHOLECALCIFEROL VIT D3 1,000 UNITS TAB PO SCH ×2 (09:28→21:08)
--- NOTE | 2019-01-12 11:50 | ASMTCMCOM ---
CM Note CM Note Notes: CM met with patient, and daughter. Daughter flew in from [place] to look after patients care. Doc reports that he will discharge tomorrow 01/13. Patient has a drain in his back and doc does not want to send him home to soon due to possibly infection. Doc recommends home care with RN, PT and OT. Patient was accepted with [facility]. CM to follow. Plan: [facility] Date Signed: 01/12/2019 11:49 AM Electronically Signed By:Carmen Jama
[2019-01-12] MEDS: MELATONIN 3 MG TAB PO PRN (21:08)
[2019-01-12] MEDS: ATORVASTATIN CALCIUM 10 MG TAB PO SCH (21:08)
[2019-01-13] MEDS: METHOCARBAMOL 750 MG TAB PO PRN ×2 (05:37→12:30)
--- NOTE | 2019-01-13 07:09 | NEUSURGPN ---
Date of Surgery: 01/11/19 Post Op Day: 2 Assessment/Plan: 88 yo male s/p L3-L5 laminectomy - leg symptoms improved - remove ROSARIO drain today - PT/OT - pain controlled on current regimen - ok for discharge from our standpoint - please contact neurosurgery with any changes in neuro status/exam Discussed with Dr. Morrison. Subjective: Doing well this morning. Leg symptoms improving. Objective: Awake. Alert. Facial expression symmetrical Speech fluent Strength 5/5 in RLE, LLE DF/EHL at 4+/5 - Physician Discussed Patient with Dr.: Morrison Neurosurgery Physical Exam - Vitals, I&O, Labs I and O 01/12/19 01/13/19 01/14/19 05:59 05:59 05:59 Intake Total 1450 460 Output Total 595 90 Balance 855 370 Weight 86.183 kg Intake: Oral (ml) 950 460 IV Intake (ml) 500 Output: Urine (ml) 350 Bedside Commode 250 Toilet 100 Estimated Blood Loss (ml) 50 ROSARIO Drain Output (ml) 195 90 Back Murray Delacruz 195 90 Other: Intake Quantity Yes Yes Sufficient Number of Voids Bedside Commode 1 Toilet 1 1 Number of Stools Toilet 1 Vital Signs Temp Pulse Resp BP Pulse Ox 36.8 C 74 16 134/79 H 92 01/12/19 22:28 01/12/19 22:28 01/12/19 22:28 01/12/19 22:28 01/12/19 22:28 Laboratory Results 01/12/19 04:21 01/12/19 04:21 ICD10 Worksheet Patient Problems: Problems Problem Status Onset Lumbar radiculopathy Acute Heart block AV second degree Acute
[2019-01-13 07:35] LABS: PLATELET COUNT 164 10^3/uL (150-400)
[2019-01-13 08:02] VITALS: BP 153/79
[2019-01-13] MEDS: ACETAMINOPHEN 325 MG TAB PO PRN ×2 (08:45→12:30)
[2019-01-13] MEDS: PANTOPRAZOLE SODIUM 40 MG TAB PO SCH (08:45)
[2019-01-13] MEDS: CHOLECALCIFEROL VIT D3 1,000 UNITS TAB PO SCH (08:46)
[2019-01-13] MEDS: SENNOSIDES/DOCUSATE SODIUM TAB PO SCH (08:53)
--- NOTE | 2019-01-13 10:19 | PDIAF ---
- Diagnosis Diagnosis: s/p L3-L5 laminectomy Code Status: Full Code - Medication Management Discharge Medications: electronically signed and located in the Home Medication List. PICC Care - Routine: N/A - Orders Services needed: Home Care, Physical Therapy, Occupational Therapy Home Care Face to Face: I certify that this patient was under my care and that I had the required [id number] encounter meeting the encounter requirements on the discharge day. My findings support the fact that the patient is homebound as defined in Home Care Face to Face Continued: CMS Chapter 7 Medicare Benefits Manual 30.1.1 , The condition of the patient is such that there exists a normal inability to leave home and consequently, leaving home would require a considerable and taxing effort. Diet Recommendation: no restrictions on diet Additional Instructions: 1. Follow up with Dr. Morrison in 2 weeks. [phone] 2. Refrain from lifting more than 10 pounds and bending/twisting. 3. Ok to shower and get the incision wet, be gentle, no scrubbing. 4. Call Dr. Morrison's office with any questions/concerns. - Follow Up Care Current Providers and Referrals: Waldo Murphy MD [Primary Care Provider] - As per Instructions
--- NOTE | 2019-01-13 10:49 | ASMTLACE ---
LACE Length of stay for Answers: 4-6 days current admission Acuity / Level of Answers: Yes Care: Did the patient have an inpatient admission? 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
--- NOTE | 2019-01-13 10:49 | ASMTCMCOM ---
CM Note CM Note Notes: Met with Pt and family to discuss discharge. Pt will go home w/ [facility] PT/OT. Updated referrals sent and [facility] staff notified via phone, of discharge. CM available for needs. PLAN: discharge home with [facility] Date Signed: 01/13/2019 10:48 AM Electronically Signed By:Lisa Duffy
--- NOTE | 2019-01-13 15:21 | GDS ---
[f rep st] DISCHARGE SUMMARY DISCHARGE DIAGNOSES: 1. Lumbar stenosis with radiculopathy. 2. Status post L3 to L5 laminectomy. 3. Third-degree heart block, status post pacemaker. 4. Obstructive sleep apnea on CPAP. 5. Hyperlipidemia. 6. Gastroesophageal reflux disease. 7. History of melanoma. 8. History of prostate cancer. CONSULTANTS: 1. Virgen Stovall, PAC, Neurosurgery. 2. Dr. Vinny Morrison, Neurosurgeon. PROCEDURE: Laminectomies at L3, L4, L5 with bilateral medial facetectomy and decompression of the ca uda equina January 11, 2019. HISTORY OF DETAILS: History of details please see history and physical dated January 09, 2019. In [facility], the patient is an 88-year-old male with a history of worsening low back pain and spinal stenosis who was admitted to the hospital due to acute worsening low back pain with radiculopathy. HOSPITAL COURSE: Patient was admitted to the Medical/Surgical unit. He was noted to have saddle par esthesias and given his worsening condition, Neurosurgery consult was obtained for consideration of m ore urgent surgical intervention. He was admitted to the hospital for further management. The ham nt was admitted to the Medical/Surgical unit. He was seen by Dr. Lani Goel from the Cardiology serv ice the day prior to admission. Given his history of complete heart block and pacer dependency, it w as recommended he have a magnet application through the surgery. His EKG showed a sensed and V paced rhythm. He has been asymptomatic from a cardiac standpoint. He was cleared for surgery by the Card iology service without further cardiac testing. Neurosurgery consulted and took the patient to the o perating room for the above procedure. He did receive dexamethasone perioperatively. His postop cou rse has been unremarkable. His drain was removed by the Neurosurgery service on the day of discharge . He is ambulating and pain is controlled. He was evaluated by therapy services team who thought he was safe for discharge home. He has apparently been followed by home health agency in the past and will resume these services upon discharge. DISPOSITION: The patient is discharged home with home health services including PT, OT. FOLLOWUP: 1. Dr. Vinny Morrison, Neurosurgery in [address] Byron Murphy, Primary Care. DISCHARGE MEDICATIONS: Please see [facility] for completed medication list. Medications on discharge include Tylenol 650 p.o. q.4 hours p.r.n., MiraLAX 17 g daily p.r.n., Senokot 1-2 tabs p.o. twice kwan ly p.r.n. He will continue all other outpatient medications as previously prescribed. Christopher is d iscontinued due to fall risk. /[id number]/MODL
--- NOTE | 2019-01-14 09:54 | ASDISCHSUM ---
Discharge Information Plan Status: Medically Cleared to Leave: Discharge Date:01/13/2019 01:20 PM CM D/C Disposition: ADT D/C Disposition:Home Health Service Projected Discharge Date:01/13/2019 11:00 AM Transportation at D/C: Discharge Delay Reason: Follow-Up Date:01/13/2019 11:00 AM Discharge Slot: Final Diagnosis: Placement Information Referral Type:*Home Health Care Services Referral ID:[id number] Provider Name:[facility] (formerly [facility]) Address 1:[address] [place] [address] Address 2: City:[place] Selection Factors: State:[place] Patient Contact Information Contact Name:FLORENTINO Relationship: Address:[address] [facility] Work Phone: [facility] Phone: State/Zip Code:[place] [address] Email: Financial Information Financial Class:Medicare Primary Plan Desc:MEDICARE INPATIENT Primary Plan Number:[id number] Secondary Plan Desc:ESTHER ANDREA O [employer] COL Secondary Plan Number:[id number] Assessment Information LACE LACE Length of stay for Answers: 4-6 days current admission Acuity / Level of Answers: Yes Care: Did the patient have an inpatient admission? 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 Daughter flew in from [place] to look after patients care. [facility] reports that he will discharge tomorrow 01/13. Patient has a drain in his back and doc does not want to send him home to soon due to possibly infection. [facility] recommends home care with RN, PT and OT. Patient was accepted with [facility]. CM to follow. Plan: [facility] Date Signed: 01/12/2019 11:49 AM Electronically Signed By:Carmen Jama [facility] Progress Note CM Note CM Note Notes: Met with Pt and family to discuss discharge. Pt will go home w/ [facility] PT/OT. Updated referrals sent and [facility] staff notified via phone, of discharge. CM available for needs. [facility] Date Signed: 01/13/2019 10:48 AM Electronically Signed By:Lisa Duffy Intervention Information Intervention Type:*Incorrect Registration Date of Service:01/09/2019 10:01 AM Patient Type:Observation Staff Member:ALICIA Aiken, Nayely Hours: Discipline: Severity: Comment:
== END 2019-01-13 13:20 | disposition home health service (06) | DRG 520 ==
LOC: OBSVTOIN 17:10 → F3N 17:32
PROVIDERS: ADMIT Internal Medicine; ATTEND Hospitalist
PROC: 00NY0ZZ Release Lumbar Spinal Cord, Open Approach (ICD-10-PCS; principal; 2019-01-11 07:15)
PROC: 4A1004G Monitoring of Central Nervous Electrical Activity, Intraoperative, Open Approach (ICD-10-PCS; principal; 2019-01-11 07:15)
DX: M48.061 Spinal stenosis, lumbar region without neurogenic claudication (principal); M54.16 Radiculopathy, lumbar region; R33.9 Retention of urine, unspecified; G47.33 Obstructive sleep apnea (adult) (pediatric); E78.5 Hyperlipidemia, unspecified; K21.9 Gastro-esophageal reflux disease without esophagitis; Z95.0 Presence of cardiac pacemaker; Z85.820 Personal history of malignant melanoma of skin; Z85.46 Personal history of malignant neoplasm of prostate
CPT/HCPCS: 97116-GP; 97161-GP; 97165-GO; 97530-GO; 97530-GP; 97535-GO; J0690; J1100; J1885; J2001; J2405; J2704; J3010

== ENCOUNTER 2019-02-09 20:26 | Emergency (ER) | payer OTHER ==
--- NOTE | 2019-02-09 20:48 | EDPHY ---
General - History Smoking Status: Former smoker Time Seen by Provider: 02/09/19 20:43 Narrative: CLINICAL IMPRESSION: Hematuria, urinary retention ASSESSMENT/PLAN: Patient is an 88-year-old male with a significant medical history of GERD and hyperlipidemia who presents to the emergency department with complaints of hematuria and acute urinary retention. Patient is afebrile, he is mildly uncomfortable appearing however not toxic-appearing. Patient's abdomen was soft , mild tenderness in the suprapubic region without rebound or guarding; no evidence of a surgical abdomen. Bladder scan revealed 700 cc of retained urine. History and physical examination today is consistent with acute urinary retention and gross hematuria. Patient was treated with a Wei catheter and a large amount of urine was returned, pink in color no clots appreciated. Urinalysis revealed RBCs, no leukocytes or nitrites. There is no evidence of infection, no fever, no vomiting. On repeat exam and after Wei placement the patient denies any physical complaints, he had complete resolution of his symptoms. He was noted to be mildly tachycardic on arrival, this resolved while in the emergency department. His abdomen was soft and nontender to palpation. Plan is to leave Wei catheter in place and followup with urology. Return precautions discussed. DIFFERENTIAL DX: Urinary retention including but not limited to medication side effect, neurologic causes, outflow obstruction including prostatic hypertrophy, and blood. CHIEF COMPLAINT: Hematuria, urinary retention HPI: Patient is a 88-year-old male with a significant medical history of GERD and hyperlipidemia who presents to the emergency department with hematuria and acute urinary retention. Patient reports that approximately 530 this evening he sat down to go to the bathroom and noticed some blood in his urine that appeared to be blood clots. He tried to go to the bathroom again at about 7:00 p.m. And he was unable to use the restroom. He has tried multiple times and is now experiencing complete urinary retention. Patient was feeling fine up until this occurred at 5:30 a.m., no recent fever, chills, chest pain, shortness of breath or abdominal pain. He denies any dysuria, frequency or hematuria prior to this event. 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 Patient denies any other complaints. PMH: GERD, hyperlipidemia Pertinent Past Surgical History: Prostatectomy, cervical fusion, laminectomy, abdominal hernia repair, right total hip arthroplasty Social History: Denies smoking or illicit drug use REVIEW OF SYSTEMS: All other systems negative Constitutional: No fever, no chills, appetite change. Eyes: No discharge, vision change ENT: No sore throat, congestion, ear pain. Cardiovascular: No chest pain, no palpitations. Respiratory: No cough, no shortness of breath. Gastrointestinal: No abdominal pain, no vomiting, diarrhea. Genitourinary: Hematuria, urinary retention. Musculoskeletal: No back pain, joint swelling, joint pain, myalgias. Skin: No rashes, color change. Neurological: No headache, dizziness, weakness. PHYSICAL EXAM: General Appearance: Well-appearing, mildly uncomfortable appearing however not toxic-appearing. HENT: Normocephalic, atraumatic. Bilateral external ears are normal. Bilateral tympanic membranes are normal with pearly obando reflex. Nares are clear, mucosa is pink. Oropharynx is clear, uvula is midline. There is no tonsillar enlargement or exudate. The dentition is normal. Eyes: PERRLA, no acute vision change, nystagmus, swelling, discharge, pain or photosensitivity. Conjunctiva pink, no pallor or injection Neck: Supple, nontender, no lymphadenopathy, no midline pain, FROM. Respiratory: There are no retractions, lungs are clear to auscultation. Cardiac: Regular rate and rhythm, no murmurs or gallops. Gastrointestinal: Abdomen is soft and mildly distended. He has mild tenderness to palpation in the suprapubic region. Bowel sounds normal, no masses/hernia, no rigidity, guarding or focal peritoneal findings. Well-healed abdominal incisions midline. Neurological: Alert and oriented x 3, CN 2-12 grossly intact, normal sensation and strength Skin: Warm, dry, no rashes, no nodules on palpation. Musculoskeletal: Extremities are symmetrical, full range of motion, no tenderness, deformity, swelling, or erythema. Psychiatric: Mood and affect are normal, there is no agitation. MEDICAL DECISION MAKING: Patient was seen independently. Secondary supervising physician at time of evaluation was Dr. Miller, he briefly evaluated this patient. Diagnosis: Hematuria, urinary retention. Summary: See Assessment and Plan for summary of ED visit Clinical lab tests: ordered / reviewed. Independent visualization of images, tracing, or specimens: Yes. Decision to obtain medical records or history from someone other than the patient: No Review / Summarize previous medical records: Yes Patient Progress: Stable, discharge. (Leslie Stuart) Medical Decision Making: Chart reviewed, also seen personally by myself. Alert, moves both extremities. Family in room. History of previous prostate surgery. Wei with relief of symptoms, slight hematuria without infection. Keep catheter in, no antibiotics, urology followup. (Garry Miller) - Objective Vital Signs: Initial Vital Signs Temperature (C) 36.7 C 02/09/19 20:27 Heart Rate 100 02/09/19 20:27 Respiratory Rate 20 02/09/19 20:27 Blood Pressure 156/87 H 02/09/19 20:27 O2 Sat (%) 93 02/09/19 20:27 O2 Delivery Mode Room Air Allergies/Adverse Reactions: No Known Allergies Allergy (Unverified 11/30/15 13:29) Home Medications: Medication Instructions Recorded Aspirin [Aspirin 81mg (*)] 81 mg PO DAILY 11/30/15 Atorvastatin Calcium [Lipitor 10 10 mg PO DAILY 11/30/15 mg (*)] Cholecalciferol Vit D3 [Vitamin D3 2,000 units PO BID 11/30/15 2000 units] Melatonin [Melatonin 3 MG (*)] 3 mg PO HS PRN 11/30/15 Omeprazole [Prilosec] 40 mg PO DAILY 11/30/15 Glucosamine Sulfate [Glucosamine 3,000 mg PO DAILY 01/03/19 Sulfate 500 MG (*)] Diclofenac Sodium [Voltaren 75 MG 75 mg PO BID PRN 01/09/19 (*)] Magnesium Oxide [Magnesium Oxide 400 mg PO HS 01/09/19 400 mg (*)] Acetaminophen [Tylenol 325mg (*)] 650 mg PO Q4HRS PRN tab 01/13/19 Polyethylene Glycol 3350 [Miralax 17 gm PO DAILY PRN pkt 01/13/19 17 gm (*)] Sennosides/Docusate Sodium 1 - 2 tab PO BID tab 01/13/19 [Senokot-S] Laboratory Results: 02/09/19 21:05 Urine Color RED Urine Appearance CLEAR Urine pH 7.0 (5.0-7.5) Ur Specific [place] 1.003 (1.002-1.030) Urine Protein 2+ H (NEGATIVE) Urine Ketones NEGATIVE (NEGATIVE) Urine Blood 3+ H (NEGATIVE) Urine Nitrate NEGATIVE (NEGATIVE) Urine Bilirubin NEGATIVE (NEGATIVE) Urine Urobilinogen NEGATIVE EU EU (0.2-1.0) Ur Leukocyte Esterase NEGATIVE (NEGATIVE) Urine RBC 15-25 /hpf H /hpf (0-3) Urine WBC 1-3 /hpf /hpf (0-3) Ur Epithelial Cells TRACE /lpf /lpf (NONE-1+) Urine Bacteria 1+ /hpf H /hpf (NONE SEEN) Urine Glucose NEGATIVE (NEGATIVE) Departure - Departure Disposition: Home, Routine, Self-Care Clinical Impression: Urinary retention Hematuria Qualifiers: Hematuria type: unspecified type Qualified Code(s): R31.9 - Hematuria, unspecified Condition: Good Instructions: Urinary Retention in Men (ED) Additional Instructions: DISCHARGE INSTRUCTIONS FROM YOUR PROVIDER Thank you for visiting our emergency department today. Please keep in mind that discharge from the emergency department does not mean that there is nothing wrong - it simply means that we have not identified an emergency condition that requires further evaluation or treatment in the hospital. You should always plan to follow up with primary care for re-evaluation of your condition in the next 2-3 days. If you have been referred to a specialist, please call as soon as possible ( today or tomorrow) to schedule your follow up appointment at the appropriate time; you have been provided a Urology referral, please call on Monday to schedule appointment for follow-up. Please leave your Wei catheter in place until follow-up with Urology. There were no signs of infection with your urinalysis. Return to the emergency department for recurrent urinary retention, fever, nausea, vomiting, chest pain, shortness of breath or for any other concerning symptom. People present with illnesses and injuries in different ways, and it is always possible that we have missed something. Again, thank you for choosing our emergency department. We hope that you feel better. Referrals: Waldo Murphy MD [Primary Care Provider] - As per Instructions Clif Daily MD [Medical Doctor] - 2-3 days, call for appt.
[2019-02-09 21:50] VITALS: BP 113/62
== END 2019-02-09 21:49 | disposition home or self-care (01) ==
DX: R33.9 Retention of urine, unspecified (principal); R31.9 Hematuria, unspecified; E78.5 Hyperlipidemia, unspecified

== ENCOUNTER → 2019-02-20 | Outpatient (CLI) | payer OTHER ==
[~2019-02-20] MED LIST changes: +IOPAMIDOL (ISOVUE-300) 100 ML BTL ONE; -IOPAMIDOL (ISOVUE-M 200) 20 ML VIAL ONE; -LIDOCAINE 1% 300 MG/30 ML SDV ONE
== END ==
LOC: FIMAGING 13:58
PROVIDERS: ATTEND Specialist
DX: R31.9 Hematuria, unspecified (principal)
CPT/HCPCS: 74178; Q9967

== ENCOUNTER → 2019-03-21 | Outpatient (CLI) | payer OTHER | LOC: FIMAGING 10:44 ==